=== PATIENT | male | born 1995 ===

== ENCOUNTER 2023-09-02 23:21 | Emergency (ER) | payer OTHER ==
[2023-09-02] MEDS ORDERED: Lidocaine 1% MPF 2 ML VIAL ONE (23:50)
[2023-09-02] MEDS ORDERED: cefTRIAXone (ROCEPHIN) 500 MG VIAL ONE (23:50)
[2023-09-03 01:01] LABS: Bacteria/HPF None Seen HPF (None Seen); Bilirubin Negative (Negative); Blood, Urine Negative (Negative); CAUTI Indications for Culture Dysuria,urgency,freq; Clarity Clear (Clear); Glucose, Urine (Dipstick) Normal (Negative); Ketone, Urine Negative (Negative); Leukocyte Negative Leu/uL (Negative); Nitrite Negative (Negative); Protein, Urine (Dipstick) 10 mg/dL (Neg-Trace); RBC/HPF None Seen HPF (0-3); Specific Gravity, Urine 1.026 (1.002-1.036); Squamous Epithelial None Seen HPF (0-3); Urobilinogen Normal mg/dL (Less than 2); WBC/HPF None Seen HPF (0-3); pH, Urine 6.5 (5.0-9.0)
[2023-09-03 01:03] LABS: Urine Culture Reflex No No
[2023-09-03 15:15] LABS: Chlam.trachomatis by PCR,Urine Not Detected (NotDetected); GC N.gonorrhoeae PCR,UrineVOID Not Detected (NotDetected)
== END 2023-09-03 00:48 | disposition home or self-care (01) ==
LOC: ERS 23:21
DX: Z20.2 Contact with and (suspected) exposure to infections with a predominantly sexual mode of transmission (principal); Z87.891 Personal history of nicotine dependence
CPT/HCPCS: 81001; 87491; 87591; 96372; 99283; J0696